=== PATIENT | female | born 1975 | race Caucasian/White ===

== ENCOUNTER 2016-06-08 16:42 | Emergency (ER) | payer OTHER ==
[2016-06-08 16:48] VITALS: RESP 18; TEMP 98.1
[2016-06-08] MEDS ORDERED: GOLYTELY 4000 ML BTL PO ONE (17:19)
[2016-06-08] MEDS ORDERED: NS 1,000 ML IV ONE (17:20)
--- NOTE | 2016-06-08 17:23 | EDPHY ---
H & P Stated Complaint: Dysuria, and hemmorrhoids, BNO seven days. Time Seen by Provider: 06/08/16 17:02 HPI/ROS: CHIEF COMPLAINT: Constipation HISTORY OF PRESENT ILLNESS: Patient is a 41-year-old female who comes to the emergency department complaining of severe constipation. She states that she has not had a bowel movement in 7 days. She recently returned from a trip to [place]. She has been constipated for almost the entire time. She does not take any medications. She did try taking some herbal medications without relief. She also has a history of hemorrhoids and has had some bleeding and pain associated with her stool. She states that she has become so constipated that she is incontinent of urine. She does not feel like eating or drinking. She does not have any low back pain or weakness or numbness in her legs. She denies any trauma. No fever. REVIEW OF SYSTEMS: Constitutional: denies: chills, fever, recent illness, recent injury EENTM: denies: blurred vision, double vision, nose congestion Respiratory: denies: cough, shortness of breath Cardiac: denies: chest pain, irregular heart rate, lightheadedness, palpitations Gastrointestinal/Abdominal: See HPI Genitourinary: See HPI Musculoskeletal: denies: joint pain, muscle pain Skin: denies: lesions, rash, jaundice, bruising Neurological: denies: headache, numbness, paresthesia, tingling, dizziness, weakness Hematologic/Lymphatic: denies: blood clots, easy bleeding, easy bruising Immunologic/allergic: denies: HIV/AIDS, transplant EXAM: GENERAL: Well-appearing, well-nourished and in no acute distress. HEAD: Atraumatic, normocephalic. EYES: Pupils equal round and reactive to light, extraocular movements intact, sclera anicteric, conjunctiva are normal. ENT: TMs normal, nares patent, oropharynx clear without exudates. Moist mucous membranes. NECK: Normal range of motion, supple without lymphadenopathy or JVD. LUNGS: Breath sounds clear to auscultation bilaterally and equal. No wheezes rales or rhonchi. HEART: Regular rate and rhythm without murmurs, rubs or gallops. ABDOMEN: Soft, nontender, normoactive bowel sounds. No guarding, no rebound. No masses appreciated. Rectal: Internal hemorrhoid seen on rectal scope, no fissure, firm stool in rectal vault, not brick hard, no bleeding BACK: No CVA tenderness, no spinal tenderness, step-offs or deformities EXTREMITIES: Normal range of motion, no pitting or edema. No clubbing or cyanosis. NEUROLOGICAL: Cranial nerves II through XII grossly intact. Normal speech, normal gait. 5/5 strength, normal movement in all extremities, normal sensation PSYCH: Normal mood, normal affect. SKIN: Warm, dry, normal turgor, no visible rashes or lesions. Source: Patient Exam Limitations: No limitations - Personal History LMP (Females 10-55): Now Current Tetanus/Diphtheria Vaccine: Unsure Current Tetanus Diphtheria and Acellular Pertussis (TDAP): Unsure - Medical/Surgical History Hx Asthma: No Hx Chronic Respiratory Disease: No Hx Diabetes: No Hx Cardiac Disease: No Hx Renal Disease: No Hx Cirrhosis: No Hx Alcoholism: No Hx HIV/AIDS: No Hx Splenectomy or Spleen Trauma: No Other PMH: denies. - Family History Significant Family History: Hypertension - Social History Smoking Status: Former smoker Alcohol Use: Sober Drug Use: None Constitutional: Initial Vital Signs Temperature (C) 36.7 C 06/08/16 16:44 Heart Rate 110 H 06/08/16 16:44 Respiratory Rate 18 06/08/16 16:44 Blood Pressure 121/94 H 06/08/16 16:44 O2 Sat (%) 96 06/08/16 16:44 O2 Delivery Mode Room Air Allergies/Adverse Reactions: No Known Allergies Allergy (Unverified 06/08/16 16:48) Home Medications: Medication Instructions Recorded NK [No Known Home Meds] 06/08/16 Medical Decision Making Procedures: Bedside ultrasound: Performed a bedside ultrasound. The patient has an empty bladder. No free fluid. Uterus is normal appearing. ED Course/Re-evaluation: On rectal scope the patient does have somewhat firm stool in her rectal vault. Internal hemorrhoids that are not bleeding. No fissures. Did a small amount of disimpaction. I will start the patient on GoLYTELY and perform an enema. Her abdominal exam is benign. The majority of this treatment can occur at home and she feels comfortable with this. 6:40 p.m. the patient is having a large bowel movement after the enema. She is requesting some pain medication. She does not have any history of renal dysfunction. She denies risk of . Treat her with Toradol in an effort to avoid further constipation. Differential Diagnosis: Partial list of the Differential diagnosis considered include but were not limited to; constipation, hemorrhoid, fissure, incontinence, urinary tract infection, urinary outflow obstruction and although unlikely based on the history and physical exam, I also considered spinal injury, trauma, infection. I discussed these differential diagnoses and the plan with the patient as well as the usual and expected course. The patient understands that the diagnosis is provisional and that in medicine we are not always correct and that further workup is often warranted. Usual and customary warnings were given. All of the patient's questions were answered. The patient was instructed to return to the emergency department should the symptoms at all worsen or return, otherwise to followup with the physician as we discussed. - Data Points Medications Given: Discontinued Medications Hydrocodone Bitart/Acetaminophen ([place] 5/325mg Prepack#6) 1 btl TAKEHOME EDNOW ONE Stop: 06/08/16 19:20 Last Admin: 06/08/16 19:21 Dose: 1 btl Sodium Chloride (Ns) 1,000 mls @ 0 mls/hr IV ONCE ONE PRN Reason: Wide Open Stop: 06/08/16 17:21 Last Admin: 06/08/16 17:20 Dose: 1,000 mls Ketorolac Tromethamine (Toradol) 30 mg IVP EDNOW ONE Stop: 06/08/16 18:32 Last Admin: 06/08/16 18:43 Dose: 30 mg Ondansetron HCl (Zofran) 4 mg IVP EDNOW ONE Stop: 06/08/16 17:27 Last Admin: 06/08/16 17:32 Dose: 4 mg Ondansetron HCl (Zofran Odt 4 Mg Prepack#2) 1 btl TAKEHOME EDNOW ONE Stop: 06/08/16 19:20 Last Admin: 06/08/16 19:22 Dose: 1 btl Polyethylene Glycol/Electrolytes (Golytely) 4,000 ml PO ONCE ONE Stop: 06/08/16 17:20 Last Admin: 06/08/16 18:43 Dose: 4,000 ml Departure - Departure Disposition: Home, Routine, Self-Care Clinical Impression: Internal hemorrhoid Constipation Qualifiers: Constipation type: unspecified constipation type Qualified Code(s): K59.00 - Constipation, unspecified Condition: Fair Instructions: Hydrocodone/Acetaminophen (By mouth), Ondansetron (By mouth), Constipation (ED) Additional Instructions: Drink the GoLYTELY 1/2 cup every 0.5 hour until you have satisfactory results then stop. Referrals: Amanda Duff MD [Medical Doctor] - As per Instructions
[2016-06-08] MEDS ORDERED: ONDANSETRON 4 MG/2 ML VIAL IVP ONE (17:26)
[2016-06-08] MEDS ORDERED: KETOROLAC 30 MG/1 ML SDV IVP ONE (18:31)
[2016-06-08] MEDS ORDERED: HYDROCOD/APAP 5/325 PREPACK#6 BTL TAKEHOME ONE (19:19)
[2016-06-08] MEDS ORDERED: ONDANSETRON 4MG PREPACK#2 BTL TAKEHOME ONE (19:19)
[2016-06-08 19:29] VITALS: BP 111/78; PULSE 70; O2SAT 95
== END 2016-06-08 19:29 | disposition home or self-care (01) ==
DX: K59.00 Constipation, unspecified (principal); K64.8 Other hemorrhoids; Z87.891 Personal history of nicotine dependence
CPT/HCPCS: 96374; J1885; J2405

== ENCOUNTER 2016-10-10 07:58 | Day surgery (SDC) | payer OTHER ==
[2016-10-10] MEDS ORDERED: NS 1,000 ML IV ONE (08:04)
[2016-10-10] MEDS ORDERED: fentaNYL 100 MCG/2 ML INJ IVP ONE (08:04)
[2016-10-10] MEDS ORDERED: MIDAZOLAM 2 MG/2 ML VIAL IVP ONE (08:04)
[2016-10-10] MEDS ORDERED: BENZOCAINE UNIT DOSE SPRAY HURRICAINE MM ONE (08:04)
[2016-10-10] MEDS ORDERED: ATROPINE SULFATE 1 MG/10 ML SYR ONE (08:55)
[2016-10-10] MEDS ORDERED: ONDANSETRON 4 MG/2 ML VIAL IVP ONE (10:00)
[2016-10-10] MEDS ORDERED: ONDANSETRON 4 MG/2 ML VIAL ONE (10:08)
--- NOTE | 2016-10-10 17:36 | ECHO ---
[id number] + + [address] : : [place] [address] : : [phone] + + Transesophageal Echocardiographic Report + + :Name: YUE CARTERpiyush Date: 10/10/2016 08:55 AM : : Hospital Admission Number: [id number] Loc ation: CVC: :: 1975 Gender: Female : :Age: 41 yrs Race: WH : :Reason For Study: Eval LV Fx : :History: Eval RA : + + Doppler Measurements \T\ Calculations TR max renetta: 232.0 cm/sec TR max P.5 mmHg RAP systole: 5.0 mmHg RVSP(TR): 26.5 mmHg Left Ventricle The left ventricular ejection fraction is normal. Atria Injection of contrast documented no interatrial shunt. The interatrial septum is intact with no evidence for an atrial septal defect. No left atrial mass or thrombus visualized. No thrombus is detected in the left atrial appendage. A prominent eustachian valve is noted. Mitral Valve The mitral valve is normal. There is no mitral valve stenosis. There is trace mitral regurgitation. Tricuspid Valve Normal tricuspid valve. There is trace tricuspid regurgitation. Right ventricular systolic pressure is normal. Aortic Valve The aortic valve is trileaflet. The aortic valve opens well. There is no aortic stenosis. There is no aortic insufficiency. Pulmonic Valve The pulmonic valve is normal in structure and function. There is no pulmonic valvular regurgitation. Vessels The aortic root is normal size. Pericardium There is no pericardial effusion. Conclusion A 2D transesophageal echocardiogram with color flow Doppler was performed. The left ventricular ejection fraction is normal. Injection of contrast documented no interatrial shunt. The interatrial septum is intact with no evidence for an atrial septal defect. No left atrial mass or thrombus visualized. No thrombus is detected in the left atrial appendage. A prominent eustachian valve is noted. This is a normal variant The mitral valve is normal. There is trace mitral regurgitation. There is trace tricuspid regurgitation. Right ventricular systolic pressure is normal. The aortic valve is trileaflet. The aortic valve opens well. The aortic root is normal size. Please send results to Dr Lianna Wang [phone] Final Reading Physician: Dr April Pulido electronically signed on 10/10/2016 05:35 PM Ordering Physician: April Pulido Performed By: Dr April Pulido
== END 2016-10-10 12:08 | disposition home or self-care (01) ==
LOC: FCATH 07:58
PROVIDERS: ATTEND Internal Medicine Cardiovascular Disease
PROC: B245ZZ4 Ultrasonography of Left Heart, Transesophageal (ICD-10-PCS; principal; 2016-10-10)
DX: R93.1 Abnormal findings on diagnostic imaging of heart and coronary circulation (principal)
CPT/HCPCS: J0461; J2250; J2405; J3010